=== PATIENT | female | born 1990 | race Caucasian/White ===

== ENCOUNTER 2021-07-12 09:59 | Outpatient (RCR) | payer OTHER, SELFPAY ==
--- NOTE | 2021-07-12 13:45 | PTOPEVAL ---
Thank you for referring Paz Draper to [facility].? The patient is scheduled to be seen for therapy? 2 x/week for 4 weeks. Please review, sign, date and return this plan of care DARI. I agree with and certify that the following plan of care is medically necessary. Referring Physician Date Attending Provider: Rad Chiang MD Problem Diagnosis low back pain, DDD Onset 14 yrs Additional Evaluation Detail Pt is 30 wk She has had previous therapy for 3 yrs, but has not been performing since Does not wear a brace Subjective Information She has been having back pain Query Text:As Reported By Patient/ for 14 yrs, Dx with DDD. Family She reports limitations with walking, standing, bending, traveling, lifting/carrying, ADL's, [employer]. She did walk for 2 hr with increased pain. She works from home with prolonged sitting, but able to take breaks as needed. Previous Treatments Previous Treatments For This Problem 3 yrs Pain Assessment Self Report Pain Assessment Lower Back Reported Pain Level 6 Pain Description Aching,Radiating,Tingling Pain Radiation Left Leg Pain Frequency Chronic,Continuous Lowest Pain Intensity 2 Greatest Pain Intensity 8 Pain Aggravating Factors ADL's,Bending,Exercise/ Activity,Lifting,Walking, Weight Bearing/Standing Cervical and Lumbar ROM Lumbar ROM Lateral Flexion distal thigh region:Active Hands to: Lumbar Comments 25% trunk flex and ext with pain Lower Extremity Range of Motion General Lower Extremity Range of Motion Reason Not Measured WNL/Left,WNL/Right Lower Extremity Muscle Strength Testing General Lower Extremity Strength Gross Lower Extremity Strength grossly 5/5 heladio knee ext and ankle DF right hip flex 4/5, left hip flex 4-/5 heladio hip abd: 3/5 able to perform full bridge with mild resistance Muscle Length Testing Muscle Length Testing Two-Joint Hip Flexor Shortened Muscles Short (R) Iliopsoas,Short (L) Iliopsoas,Short (R) Rectus Femoris,Short (L) Rectus Femoris,Short (R) Ilial Tib
--- NOTE | 2021-07-14 08:24 | PCPTNOTE ---
Patient called & cancelled all scheduled appointment this date due to delivering baby early.Will DC her chart.
--- NOTE | 2021-07-14 08:52 | PCPTNOTE ---
Admitting Provider: Attending Provider:Rad Chiang MD Patient:Paz Draper Date of :1990 Physical Therapy Discharge Note Patient called on 07/14/21 to cancel her remaining visits due to having the baby early. Patient?s initial visit was on 07/12/2021 10:00 and she had a total of 1 visits. The goals have been not met due to seen for 1 visit. Thank you for referring this patient to [facility]. Please review, sign, date and return this discharge summary DARI. I have been updated about the patient's current status and I agree with discharge from the above service at this time. Referring Physician Date
== END 2021-07-15 08:38 | disposition home or self-care (01) ==
LOC: ANHPT 09:59
PROVIDERS: Absent Provider Nurse Practitioner Obstetrics & Gynecology
DX: Z34.00 Encounter for supervision of normal first pregnancy, unspecified trimester (principal); Z87.39 Personal history of other diseases of the musculoskeletal system and connective tissue
CPT/HCPCS: 97110; 97162